=== PATIENT | female | born 1930 | race Hispanic/Latino ===

== ENCOUNTER 2016-08-24 08:20 | Outpatient (CLI) | payer MEDICARE ==
--- NOTE | 2016-08-24 09:09 | Ultrasound Report ---
LEFT BREAST ULTRASOUND: 08/24/16 08:20:00 CLINICAL: Left breast pain. COMPARISON: None. She had a negative mammogram 04/04/16. FINDINGS: Ultrasound of the left breast(including all four quadrants and the retroareolar area) was performed and demonstrated normal fibroglandular structures. No mass, cyst or shadowing. Ultrasound of the left axilla demonstrated no lymph nodes. IMPRESSION: Normal left breast ultrasound. BI-RADS 1 - - Negative RECOMMENDATION: Clinical followup and routine mammographic screening.
== END 2016-08-24 08:21 | disposition home or self-care (01) ==
LOC: SPVWC 08:20
PROVIDERS: ATTEND Internal Medicine
DX: N64.4 Mastodynia (principal)

== ENCOUNTER 2017-03-07 09:16 | Outpatient (CLI) | payer MEDICARE ==
--- NOTE | 2017-03-07 09:43 | Mammography Report ---
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 Chronic left breast pain. She had a negative left breast ultrasound 08/24/16 COMPARISON:03/04/16 FINDINGS: The breast is extremely dense, which limits the sensitivity of mammography. Benign vascular and nonvascular calcifications.No mass, architectural distortion or suspicious calcifications. IMPRESSION: No mammographic evidence of malignancy. BI-RADS CATEGORY: 2 - - Benign RECOMMENDATION: Routine mammographic screening in one year. ACR BI-RADS MAMMOGRAPHIC CODES: 0 = Needs additional imaging evaluation; 1 = Negative; 2 = Benign; 3 = Probably benign; 4 = Suspicious; 5 = Malignant; 6 = Known biopsy-proven malignancy COMMENT: 1. Dense breast tissue, i.e., adenosis, fibrocystic changes, etc., may obscure an underlying neoplasm. 2. Approximately 10% of cancers are not detected with mammography. 3. A negative mammography report should not delay biopsy if a clinically suspicious mass is present. COMMENT: Patient follow-up letters are generated by our [employer] application.
== END 2017-03-07 09:17 | disposition home or self-care (01) ==
LOC: SPVWC 09:16
PROVIDERS: ATTEND Internal Medicine Hematology & Oncology
DX: N64.4 Mastodynia (principal); D05.11 Intraductal carcinoma in situ of right breast; Z90.11 Acquired absence of right breast and nipple
CPT/HCPCS: G0206-LT

== ENCOUNTER 2019-03-19 14:17 | Outpatient (CLI) | payer MEDICARE ==
--- NOTE | 2019-03-19 15:30 | Mammography Report ---
LEFT DIGITAL DIAGNOSTIC MAMMOGRAM WITH CAD -- 03/19/2019 LEFT COMPLETE BREAST ULTRASOUND INDICATION: Breast cancer survivor status post right mastectomy. Left breast pain TECHNIQUE: Digital left mammographic imaging was performed. Complete ultrasound of all four (4) quad rants was performed. This examination was interpreted with the benefit of Computer-Aided Detection (C AD) analysis. COMPARISON: 03/13/2018 FINDINGS: Breast Density: The breasts are extremely dense, which lowers the sensitivity of mammography. MAMMOGRAPHIC FINDINGS: There is no evidence of dominant mass, suspicious calcifications or architectu ral distortion in either breast. ULTRASOUND FINDINGS: Complete sonographic evaluation of all 4 quadrants and retroareolar region was p erformed. Normal fibroglandular structures. No mass, cyst or shadowing. IMPRESSION: Negative mammogram and negative left breast ultrasound. Follow up recommendation: Routine yearly BI-RADS Category 2: Benign. A "normal" or negative report should not discourage follow up or biopsy of a clinically significant f inding. A written summary of these findings will be mailed to the patient. The patient will be entered into a mammography reporting system which will generate a reminder letter for the patient's next appointmen t at the appropriate interval. According to the [employer], yearly mammograms are recommended starting at age 40 and continuing as long as a woman is in good health. Breast MRI is recommended for women with an liv roximately 20-25% or greater lifetime risk of breast cancer, including women with a strong family his tory of breast or ovarian cancer and women who have been treated for Hodgkin's disease. Signer Name: Mayo Dasilva MD Signed: 03/19/2019 3:26 PM Workstation Name: [id number]
== END 2019-03-19 14:18 | disposition home or self-care (01) ==
LOC: SPVWC 14:17
PROVIDERS: ATTEND Internal Medicine Hematology & Oncology
DX: D05.11 Intraductal carcinoma in situ of right breast (principal); R92.8 Other abnormal and inconclusive findings on diagnostic imaging of breast; I10 Essential (primary) hypertension; K21.9 Gastro-esophageal reflux disease without esophagitis; Z90.89 Acquired absence of other organs; Z90.710 Acquired absence of both cervix and uterus; M06.9 Rheumatoid arthritis, unspecified; E03.9 Hypothyroidism, unspecified; M32.9 Systemic lupus erythematosus, unspecified